=== PATIENT | male | born 1975 | race Caucasian/White ===

== ENCOUNTER → 2016-05-18 12:55 | Emergency (ER) | payer OTHER ==
--- NOTE | ~2016-05-18 | CR181 ---
[facility] A Service of [facility] RADIOLOGY TEXT RESULTS PATIENT: EILEEN PAL LOCATION: [facility] : [birth year] UNIT #: [id number] AGE: [address]: Chloe Astudillo SEX: M ORDER DR: [id number] [id number] [place], [place] [address] [id number] P MR#: [id number] Acc #: [id number] NAME: EILEEN PAL : 1975 SEX: M STUDY DATE/TIME: 05/18/2016 11:55 UNIT: CFTX ROOM: STUDY DESCRIPTION: CR Lumbar Spine 2 or 3 Views Attending Physician: Chloe Astudillo Pa-C Ordering Physician: Ed Carlos A Fernandez M.D. Primary Care Physician: No Primary Care Physician MEDICAL IMAGING REPORT This report is preliminary unless electronic signature is present EXAM 3 views lumbar spine, 05/18/2016, 11:55 HISTORY Low back pain radiating to the right buttocks since yesterday. History of disc bulge. COMPARISON None FINDINGS No acute fracture or subluxation is seen. Probably mild diminished disc height at L4-5. Small endplate marginal osteophytes are present at L1, L3, and L4. No osteolytic or osteoblastic abnormalities. No sacroiliac joint or pubic symphysis diastasis. IMPRESSION No acute lumbar spine findings. Probable mild diminished disc height at L4-5. Dictated by... Donna Go M.D. THIS IS AN ELECTRONICALLY VERIFIED REPORT Donna Go M.D. at 05/19/2016 7:56 AM NEHALH/kt TD: 05/18/2016 13:01 JOB #: [id number] MEDICAL IMAGING REPORT [facility] A Service [facility] RADIOLOGY TEXT RESULTS PATIENT: EILEEN PAL LOCATION: [facility] : 79 UNIT #: [id number] AGE: [address]: Chloe Astudillo SEX: M ORDER DR: Page 1 of 1 COPY
[~2016-05-18 12:55] MED LIST: ALBUTEROL17 GM INH; ARTHRITIS PAIN650 M3 PO; AUGMENTIN PO; BACITRACIN30 GM TOP; CLEOCIN150 MG PO; DIAZEPAM PO; DOXYCYCLINE PO; FLEXERIL PO; FLOMAX0.4 M1 PO; HYDROXYZINE HCL50 MG PO; IBUPROFEN PO; KEFLEX PO; KEFLEX500 MG PO; KEPPRA500 M2 PO; LORTAB 5/500 TA1 TA1 PO; LORTAB 7.5-5001 TAB PO; METAXALONE800 MG PO; MOTRIN600 MG PO; NAPROSYN-EC500 M1 PO; NEURONTIN PO; NEURONTIN300 MG PO; NEURONTIN800 MG PO; NO MEDICATIONS; OXYCODONE HCL10 MG PO; SENNA8.6 M1 PO; STOOL SOFTENER50 MG PO; TYLENOL #3 PO; ULTRAM PO; VICODIN 5/1 TAB 5/50 PO; VICODIN 5/500 T1 TAB PO; VICODIN PO; VOLTAREN75 MG PO; ZOLOFT PO
== END | disposition home or self-care (01) ==
LOC: CFTX 12:55
DX: S39.92XA Unspecified injury of lower back, initial encounter (principal); F31.9 Bipolar disorder, unspecified; F17.200 Nicotine dependence, unspecified, uncomplicated; Z98.890 Other specified postprocedural states; X58.XXXA Exposure to other specified factors, initial encounter; Y93.89 Activity, other specified; Y92.009 Unspecified place in unspecified non-institutional (private) residence as the place of occurrence of the external cause
CPT/HCPCS: 72100; 96372; 99283; J1885

== ENCOUNTER 2016-07-18 03:46 | Inpatient (IN) | payer OTHER ==
--- NOTE | ~2016-07-18 | CO ---
Unit #: [id number] #: [id number] Patient: EILEEN PAL [id number] [address] [place], [place] [address] [id number] I MR#: [id number] NAME: EILEEN PAL ROOM: 302 Age: 40 Sex: M Admission Date: 07/18/2016 : 1975 Attending Physician: Lanny Moran M.D. Consultation Date: 07/18/2016 CONSULTATION REPORT REASON FOR CONSULTATION Spinal osteomyelitis. HISTORY OF PRESENT ILLNESS This is a 40-year-old white male, who was recently at [facility] for lumbar spinal diskitis and osteomyelitis as well as a Staphylococcus aureus sepsis. According to the patient's description, he had MSSA in the blood and he was on nafcillin in the hospital, but he was discharged on IV daptomycin on a daily basis for few weeks. However, he continues to have low back pain, which was progressive along with some subjective fever. He called 911 and came to this hospital, although he wanted to go back to [facility]. I do not have any records from [facility] [place] to confirm his statements. CT scan here shows possible psoas abscess and diskitis of L5-L4 area. The patient does not have any significant fever, hypotension, does not look septic or toxic. He has been started on vancomycin and Zosyn. ID was consulted for further evaluation. PAST MEDICAL HISTORY Recent spinal infection, on IV daptomycin; history of seizures; psychiatric disorder and bipolar disorder. ALLERGIES None. SOCIAL HISTORY Smokes cigarettes. No history of alcohol or drug abuse. HOME MEDICATIONS Metaxalone, Diflucan, naproxen, hydroxyzine, Neurontin, oxycodone, stool softener, daptomycin, and acetaminophen. PREVIOUS SURGERIES Left hand surgery and left arm surgery and right ear surgery, details are not clear. From his description, it appears that he had needle aspiration of his spinal abscess, but no open surgery. SYSTEMIC REVIEW Progressive back pain, subjective fever. There is no lower extremity weakness, stool incontinence, or urinary incontinence. No headache, cough, abdominal pain, dysuria, frequency, urgency, hematuria, etc. PHYSICAL EXAMINATION GENERAL: Reveals a young white male, who is awake and alert, in no acute Unit #: [id number] #: [id number] Patient: EILEEN PAL. VITAL SIGNS: Stable. Temperature is 98, heart rate 100, respirations 18, blood pressure 120/80. HEENT: Unremarkable. Oral hygiene is poor. NECK: Supple. There is no JVD or edema. LUNGS: Clear to percussion and auscultation. HEART: Sounds normal. There are no murmurs. ABDOMEN: Soft and nontender without organomegaly or ascites. Bowel sounds normal. NEUROLOGIC: Nonfocal. There is moderate amount of lumbosacral spinal tenderness, but there is no obvious cellulitis, bulge, or open wounds. DIAGNOSTIC STUDIES LABORATORY RESULTS: White count 13.6, hemoglobin 11.2, platelets 378, neutrophils are 84%. PT is 11.5. Sodium 133, potassium 4.2, chloride 101, CO2 of 23, BUN 24, creatinine 1.1. CRP is 12 and sedimentation rate is 100. IMAGING STUDIES: CT of the lumbar spine shows obliteration of the disk space and vertebral body endplates at L3-4 and L4-5 with associated pathologic fracture of L3, L4, and L5 consistent with diskitis and osteomyelitis. There is also paraspinal inflammation and phlegmon, small fluid collection in the right psoas muscle. IMPRESSION Strongly believe the patient has progressive spinal and paraspinal infection due to methicillin susceptible Staphylococcus aureus. Medical therapy alone is not helping and it may not be helpful. RECOMMENDATIONS Pending confirmation of his microbiology studies for [facility]. I will continue him on Zosyn and vancomycin. I will highly recommend spine surgery consult as soon as possible. He may also need an MRI. Further recommendation will follow. Dictated by... Eva Jang/adryan TD: 07/22/2016 02:22 JOB #: [id number] CONSULTATION REPORT Page 1 of 1 X Chuck Lorenzo MD CONSULTATION REPORT
--- NOTE | ~2016-07-18 | DS ---
Unit #: [id number] #: [id number] Patient: EILEEN PAL [id number] [address] [place], [place] [address] [id number] I MR#: [id number] NAME: EILEEN PAL ROOM: 302 Age: 40 Sex: M Admission Date: 07/18/2016 : 1975 Discharge Date: Attending Physician: Lanny Moran M.D. Primary Care Physician: Primary Care Physician No DISCHARGE SUMMARY DISCHARGE DIAGNOSES 1. Qgtlj-xc-mcbvlwg diskitis L3-L4 and L4-L5, with involvement of adjacent bones with osteomyelitis. 2. Right psoas abscess. Apparently, he had drainage at the [facility] but it still shows recurrent abscess on the new MRI. 3. Severe mass effect on the thecal sac. 4. Anterior epidural extension of inflammation and infectious tissue noted at L3-L4 and L4-L5. 5. History of seizures. 6. Severe back pain. 7. Anemia, likely iron deficiency. 8. Likely bipolar and psychiatric disorder. 9. Mild protein malnutrition. CONSULTANTS 1. Dr. Lorenzo. 2. Dr. Mitchell, spinal doctor. PROCEDURES None. DIAGNOSTIC STUDIES 1. MRI shows diskitis and osteomyelitis at the L3-L4 and L4-L5, involvement at the adjacent bones also. Right psoas abscess, maximum thickness 1.4 cm. It is at least 6.5 cm long. Anterior epidural extension of inflammation infectious tissue noted at the L3-L4 and L4-L5 without epidural abscess. Severe mass effect on thecal sac present. 2. Sodium 138, potassium 3.9, creatinine 0.7, AST 17, ALT 13, alkaline phosphatase 82, total bilirubin 0.4, albumin 2.7. WBC 6.6, hemoglobin 10.0, platelets 327. Blood cultures negative. Sedimentation rate 1.03. C-reactive protein 12.8. 3. C-spine shows abnormal appearance of L4 and L5. CT scan recommended. 4. CT of the lumbar spine shows obliteration of disk space and vertebral body end-plates at the L3-L4 and L4-L5 with associated pathological fractures. Extensive paraspinous inflammation and phlegmon present with diskitis and osteomyelitis. Also intramuscular abscess present. ALLERGIES None. DISCHARGE MEDICATIONS 1. Tylenol 650 q.6 h. p.r.n. pain. 2. Neurontin 300 mg t.i.d. Unit #: [id number] #: [id number] Patient: EILEEN PAL 3. Hydroxyzine 50 mg q.6 h. p.r.n. agitation. 4. Nicotine 21 mg transdermal daily. 5. Colace 100 daily. 6. Senna one tablet daily. 7. Sulindac 150 mg p.o. b.i.d. 8. Roxicodone 10 mg q.4 h. p.r.n. pain. 9. Protonix 40 daily. 10. Metaxalone 800 mg t.i.d. p.r.n. muscle spasms. 11. Ceftriaxone 2 grams IV b.i.d. HOSPITAL COURSE This was 40-year-old admitted because of back pain. Kpkjj-kj-dozxdui diskitis with osteomyelitis at L3-L4, L4-L5 level with a right psoas abscess with severe mass effect and epidural phlegmon. The patient was seen by spine doctor and infectious disease. The patient was on nafcillin, later changed to ceftriaxone because the patient could not tolerate nafcillin because of severe irritation at the IV site. Blood cultures are negative so far. I discussed at length with Infectious Disease and the spine doctor, Dr. Mitchell, they both wanted him to be transferred to the [facility] because of worsening abscess and worsening osteomyelitis and phlegmon and severe mass effect. I discussed with the [facility] medical team. They are agreeing to accept the patient. I will transfer the patient once the bed is available. Severe back pain secondary to diskitis and osteomyelitis. Patient received IV Dilaudid. Continue with p.o. pain medication. History of seizures, stable. The patient is on Neurontin. History of bipolar. Continue with current home medications. DISPOSITION The patient will be transferred to the [facility] once bed is available under Dr. Castro's care. The patient needs spinal surgeon's consult at the [facility] for further evaluation and treatment of his diskitis and spinal abscess. Discharge time taken is 40 minutes. Dictated by... Eva Posey TD: 07/20/2016 16:39 JOB #: [id number] Unit #: [id number] #: [id number] Patient: YARI PALEW DISCHARGE SUMMARY Page 1 of 1 X Lanny Moran MD DISCHARGE SUMMARY
--- NOTE | ~2016-07-18 | HP ---
Unit #: [id number] #: [id number] Patient: EILEEN PAL [id number] [facility] [address]. [place], [place] [address] [id number] I MR#: [id number] NAME: EILEEN PAL ROOM: 302 Age: 40 Sex: M Admission Date: 07/18/2016 : 1975 Attending Physician: Lanny Moran M.D. Primary Care Physician: No Primary Care Physician HISTORY AND PHYSICAL HISTORY OF PRESENT ILLNESS This is a 40 year old with history of recent spinal infection, likely diskitis with abscess, on IV antibiotics. He is admitted because of back pain. According to him, he has had back pain for a few weeks, but his pain got worse since 1 day's duration. He called ambulance, and the ambulance brought him to [facility]. In the ER the patient had a CT, which shows acute diskitis and psoas abscess. On further questioning, the patient says he is going to [facility] for his back infection. He is getting IV antibiotics, the name he currently cannot remember. He is supposed to go there, but because the ambulance brought him here, he could not go there today. Also, he complains of pain currently around 6/10 with radiation to his leg, relieved with pain medication. No fever. No chills. No Nausea. No vomiting. No diarrhea. No constipation or urine trouble. PAST MEDICAL HISTORY Recent history of back infection, on IV antibiotics, details unknown. I will get records from [facility]. He has history of seizures and psychiatric disorder, likely bipolar. ALLERGIES None. SOCIAL HISTORY Smokes 1/2 pack of cigarettes per day. No alcohol. No drugs. HOME MEDICATIONS Metaxalone 800 p.o. t.i.d., Diflucan 75 p.o. b.i.d., naproxen 500 t.i.d., hydroxyzine 50 q.6, Neurontin 300 t.i.d., oxycodone 10 mg q.4, stool softener 50 daily, Senna 1 tablet daily, Arthritis Pain Relief (acetaminophen) 650 q.6 p.r.n. PAST SURGICAL HISTORY Drain in his back, likely I and D. Also, he had left hand surgery, left arm surgery, right ear surgery. REVIEW OF SYSTEMS Currently no headache. No visual changes. No weakness, numbness, tingling. No skin rash. No leg swelling. Reviewed 12-point systems with him, which are negative except as in the HPI. Unit #: [id number] #: [id number] Patient: EILEEN PAL PHYSICAL EXAMINATION VITAL SIGNS: Temperature 98, pulse 118, respirations 24, blood pressure 126/89. GENERAL EXAMINATION: A 40 year old lying on the bed in mild distress secondary to pain, able to provide history. Alert, oriented x3. HEENT: Pupils are equally reactive to light and accommodation. No pallor. No icterus. Dry mucosa present. NECK: Supple. HEART: S1, S2 heard. Regular rhythm. LUNGS: Clear to auscultation. No crackles. No rhonchi. ABDOMEN: Soft, nontender. Bowel sounds are present. EXTREMITIES: No pedal edema. SKIN: No rash. NEUROLOGIC: Moving all extremities. Nonfocal. BACK: Patient has tenderness in the lower back. No swelling or erythema in his back. DIAGNOSTIC STUDIES LAB DATA: WBC 13.6, hemoglobin 11.2, platelets 378. INR 1.1. Sodium 133, potassium 4.2, creatinine 1.1. IMAGING: CT of the lumbar spine shows obliteration of disk space and vertebral body and plate at L3-L4 and L4-L5 associated with pathological fractures of the L3, L4 and L5. Process appears centered about the disc spaces and consistent with a discitis and osteomyelitis. Extensive paraspinous inflammation supportive of diskitis and osteomyelitis present. Right psoas muscle has intramuscular abscess. ASSESSMENT This is a 40 year old admitted because of back pain. PLAN 1. Acute on chronic diskitis with osteomyelitis at L3-L4 and L4-L5 levels. I am going to start him on IV vancomycin and Zosyn and do blood cultures. Infectious disease and spine surgeon to look at him. I will also get records from [facility]. 2. Recent spinal abscess status post aspiration, as per patient. Waiting on records from [facility]. 3. Pathological fractures L3, L4, L5. Continue with IV antibiotics. 4. Intramuscular abscess, right psoas. I am going to wait for the spinal surgeon to see if the patient needs more I and D or drain. 5. History of seizures. The patient is not on any medications. Monitor closely. 6. Bilateral SCDs for DVT prophylaxis. 7. Protonix for GI prophylaxis. Dictated by Eva Posey/brynn TD: 07/18/2016 16:22 JOB #: [id number] Unit #: [id number] #: [id number] Patient: EILEEN PAL HISTORY AND PHYSICAL Page 1 of 1 X Lanny Moran MD X HISTORY AND PHYSICAL
--- NOTE | ~2016-07-18 | CR181 ---
[facility] A Service of [facility] RADIOLOGY TEXT RESULTS PATIENT: EILEEN PAL LOCATION: [facility] 302-01 : [birth year] UNIT #: [id number] AGE: [address]: Lanny Moran MD SEX: M ORDER DR: [id number] [facility] [address]. [place], [place] [address] [id number] I MR#: [id number] Acc #: [id number] NAME: EILEEN PAL : 1975 SEX: M STUDY DATE/TIME: 07/18/2016 4:17 UNIT: [facility] ROOM: [id number] STUDY DESCRIPTION: CR Lumbar Spine 2 or 3 Views Attending Physician: Lanny Moran M.D. Ordering Physician: Anjali Greer M.D. Primary Care Physician: No Primary Care Physician MEDICAL IMAGING REPORT This report is preliminary unless electronic signature is present EXAM Lumbar spine 3-view series. INDICATION Back pain for 3 months after fall. COMPARISON 05/18/16. FINDINGS AP and lateral views of the lumbar spine were obtained. It is very difficult to clearly see the disc space at the L3-4 and 4-5 level and the L4 vertebral body is difficult to visualize on the lateral views and the bodies were fairly distinct on the old study. The alignment is normal. IMPRESSION I am concerned that there has been some change in the appearance of L4 as compared with the old study. It appeared normal on the old exam but on today's study it is very difficult to see the L4-5 disc space and the L4 vertebral body on any of the 3 lateral views and I am concerned there might be disc space loss and perhaps change in the shape of the L4 vertebral body. I have recommended a CT scan of the lumbar spine for further evaluation. Dictated by... Daniel Marques M.D. THIS IS AN ELECTRONICALLY VERIFIED REPORT Daniel Marques M.D. at 07/18/2016 1:22 PM FEL/bd [facility] A Service of [facility] RADIOLOGY TEXT RESULTS PATIENT: EILEEN PAL LOCATION: [facility] 302-01 : [birth year] UNIT #: [id number] AGE: [address]: Lanny Moran MD SEX: M ORDER DR: TD: 07/18/2016 11:06 JOB #: [id number] MEDICAL IMAGING REPORT Page 1 of 1 COPY
--- NOTE | ~2016-07-18 | MR112 ---
[facility] A Service of [facility] RADIOLOGY TEXT RESULTS PATIENT: EILEEN PAL LOCATION: [facility] 302- : [birth year] UNIT #: [id number] AGE: [address]: Lanny Moran MD SEX: M ORDER DR: [id number] [facility] [address] [place], [place] [address] [id number] I MR#: [id number] Acc #: [id number] NAME: EILEEN PAL : 1975 SEX: M STUDY DATE/TIME: 07/20/2016 9:03 UNIT: A [facility] ROOM: [facility] STUDY DESCRIPTION: MR Lumbar WWo Contrast Attending Physician: Lanny Moran M.D. Ordering Physician: Lanny Moran M.D. Primary Care Physician: Primary Care Physician No MRI CENTER REPORT This report is preliminary unless electronic signature is present. EXAM MRI lumbar spine with and without contrast dated 07/20/[address] lumbar spine without contrast dated 07/18/2016. HISTORY Recent spinal infection. Patient was started on IV antibiotics at [facility]. History of diskitis and osteomyelitis from L3-L5. FINDINGS Multisequence multiplanar imaging of the lumbar spine was obtained with and without contrast. 18 mL of MultiHance was administered intravenously. GFR measured greater than 60. There is significant edema with loss of vertebral body height from L3 to L5, worse at L4 followed by 3. Intervertebral disc increased T2 signal with peripheral rim of enhancement is noted at L3-4 and L4-5 discs. There is surrounding significant inflammatory enhancing soft tissue at these levels. Peripherally enhancing cystic components are noted to extend from the inferior aspect of L4-5 disc space and the upper L5 vertebral body along the right anterolateral aspect to the anteromedial and anterior right psoas muscle. Its entire extension is not included in the current study. It is a very long collection with a maximum thickness of 1.4 cm in the visualized part of the right psoas abscess. Its length is more than 6.5 cm. There is extension of abnormal enhancing soft tissue in the anterior epidural space from the level of L3 to the level of L5, most prominent at L3-4. Though increased T2 signal is noted focally at the central aspect of L3-4 disc, it does not correlate with an abscess collection as the entire component enhances. It does cause severe mass effect on the thecal sac at this level. No enhancing nerve roots are noted in the cauda equina or distal thoracic cord. [facility] A Service of [facility] RADIOLOGY TEXT RESULTS PATIENT: EILEEN PAL LOCATION: [facility] 302-01 : [birth year] UNIT #: [id number] AGE: [address]: Lanny Moran MD SEX: M ORDER DR: L1-2: Concentric disc bulge with small left foraminal to extraforaminal broad based protrusion. Minimal bilateral facet changes are noted with borderline size canal. No significant neural foraminal narrowing. L2-3: Minimal disc bulge but otherwise unremarkable. L3-4: Significant disc abnormality is noted as described above with extension into the anterior epidural space of the enhancing soft tissue causing severe canal stenosis. There are rmbn-eo-hpwpncgr bilateral facet hypertrophic changes with ligamentum flavum thickening, moderate bilateral lateral recess stenosis and eaazxfmx-un-xcinvw bilateral neural foraminal narrowing. L4-5: Abnormal infected disc with anterior epidural enhancing soft tissue causing ducqmfel-hz-qjktjl mass effect on the thecal sac. Prominent posterior and lateral epidural fat contributes to the thecal sac narrowing. There is moderate right and mild to moderate left neural foraminal narrowing due to presence of soft tissue. Alys-vm-yywcvtuk facet changes are noted, worse in the left. L5-S1: Concentric disc bulge with small central protrusion. Mild right facet hypertrophic change is noted. No significant canal stenosis or neural foraminal narrowing. IMPRESSION 1. Diskitis and osteomyelitis at L3-4 and L4-5 levels with involvement of the adjacent bones. 2. There is an abscess collection which extends from the inferior aspect of L4-5 disc along the right anterolateral aspect. It traces to the medial and anterior aspect of the right psoas muscle and has a maximum thickness of 1.4 cm in the visualized portions. It is at least 6.5 cm long in its oblique course. 3. Findings were discussed with Dr. Moran at 11:30 a.m. on 07/20/2016. Awaiting comparison with [facility] previous MRI study. Patient apparently had a catheter draining an abscess. 4. Anterior epidural extension of inflammatory/infectious tissue is noted at L3-4 and L4-5 without epidural abscess. There is severe mass effect on the thecal sac. Addendum will be placed when prior exam from [facility] is given. This abscess was suspected in the CT lumbar spine from 07/18/2016. Dictated by... Bob Marc M.D. THIS IS AN ELECTRONICALLY VERIFIED REPORT Bob Marc M.D. at 07/20/2016 6:06 PM CPR/mjs [facility] A Service of [facility] RADIOLOGY TEXT RESULTS PATIENT: EILEEN PAL LOCATION: [facility] 302- : [birth year] UNIT #: [id number] AGE: [address]: Lanny Moran MD SEX: M ORDER DR: TD: 07/20/2016 12:59 JOB #: [id number] MRI CENTER REPORT Page 1 of 1 COPY
--- NOTE | ~2016-07-18 | CT98 ---
[facility] A Service of [facility] RADIOLOGY TEXT RESULTS PATIENT: EILEEN PAL LOCATION: [facility] : 79 UNIT #: [id number] AGE: [address]: Mitchell Figueredo MD SEX: M ORDER DR: [id number] [facility] [address] [place], [place] [address] [id number] MR#: [id number] #: [id number] NAME: EILEEN PAL : 1975 SEX: M STUDY DATE/TIME: 07/18/2016 5:44 UNIT: [facility] ROOM: STUDY DESCRIPTION: CT Lumbar Spine Wo Cont Attending Physician: Mitchell Figueredo M.D. Ordering Physician: Anjali Greer M.D. Primary Care Physician: Primary Care Physician No MEDICAL IMAGING REPORT This report is preliminary unless electronic signature is present EXAM CT lumbar spine INDICATIONS Low back pain. Spinal abscess. 1-day duration. Abnormal lumbar spine radiographs. Discitis/osteomyelitis. TECHNIQUE CT of the lumbar spine without contrast. Coronal and sagittal reconstructions were obtained. The CT exam was performed with one or more of the following radiation dose reduction techniques: automatic exposure control, adjustment of mA and/or kV according to patient size, and iterative reconstruction. COMPARISON: Lumbar spine radiographs 07/18/2016 and 05/18/2016. FINDINGS There is endplate destruction of the L3-4 and L4-5 spaces. There is a pathologic fracture involving the inferior endplate of L3, L4 vertebral body, and superior endplate of L5. The disc space is obliterated. There is retropulsion of fracture fragments at the L3-4 level. The retropulsion measuring up to 6 mm. Although limited without IV contrast, there does appear to be some paraspinous phlegmon and/or inflammation. The overall appearance is most consistent with discitis/osteomyelitis. Evaluation for an extradural component is limited, without IV contrast, however, however, abscess is suspected. There is some low attenuation within the right psoas muscle which could represent an intramuscular abscess. Contrast enhanced exam or an MRI is recommended. There is straightening of the normal lumbar lordosis at L3-4 and L4-5. STS. [facility] A Service of [facility] & [facility] RADIOLOGY TEXT RESULTS PATIENT: EILEEN PAL LOCATION: [facility] : 79 UNIT #: [id number] AGE: [address]: Mitchell Figueredo MD SEX: M ORDER DR: IMPRESSION 1. Obliteration of the disc space and vertebral body endplates at L3-4 and L4-5 with associated pathologic fractures of the L3, L4, and L5. This process does appears centered about the disc spaces and is consistent with a discitis/osteomyelitis. 2. Extensive paraspinous inflammation and phlegmon is supportive for a discitis/osteomyelitis. There is a low attenuation in the neck. 3. There is a low-attenuation fluid collection extending into the right psoas muscle likely represent intramuscular abscess. Please note that evaluation is limited without IV contrast. 4. Retropulsion of the L3 and L4 vertebral bodies due to pathologic fracture. This results in a moderate central canal stenosis. Dictated by... Johnie Pablo M.D. THIS IS AN ELECTRONICALLY VERIFIED REPORT Johnie Pablo M.D. at 07/18/2016 8:05 AM BALDOMERO/naomi TD: 07/18/2016 07:01 JOB #: [id number] MEDICAL IMAGING REPORT Page 1 of 1 COPY
[~2016-07-18 03:46] MED LIST changes: -ARTHRITIS PAIN650 M3 PO; -HYDROXYZINE HCL50 MG PO; -METAXALONE800 MG PO; -NAPROSYN-EC500 M1 PO; -NEURONTIN300 MG PO; -OXYCODONE HCL10 MG PO; -SENNA8.6 M1 PO; -STOOL SOFTENER50 MG PO; -VOLTAREN75 MG PO
[2016-07-18 07:35] LABS: BASOPHIL# 0.1 X10e3 (0-0.3); BASOPHIL% 0.8 % (0-2.5); EOSINOPHIL# 0.1 X10e3 (0-0.7); EOSINOPHIL% 0.4 % (0.0-7.0); HEMATOCRIT 34.2 % (38.0-50.0); HEMOGLOBIN 11.2 gm/dL (13.0-16.0); LYMPHOCYTE# 1.5 X10e3 (1.0-3.5); LYMPHOCYTE% 10.7 % (17.0-45.0); MEAN CELL VOLUME 90.1 FL (83-96); MEAN CORPUSCULAR HEMOGLOBIN 29.4 PG (28-34); MEAN CORPUSCULAR HGB CONC 32.6 g/dL (30-36); MEAN PLATELET VOLUME 6.7 FL (6.5-11.5); MONOCYTE# 0.4 X10e3 (0-1.0); MONOCYTE% 3.2 % (3.0-12.0); NEUTROPHIL# 11.6 X10e3 (1.5-7.1); NEUTROPHIL% 84.9 % (40-75); PLATELET COUNT 378 X10e3 (140-420); RED CELL DISTRIBUTION WIDTH 16.7 % (11.0-15.5); WHITE BLOOD COUNT 13.6 X10e3 (4.0-10.5)
[2016-07-18 07:36] LABS: DIFF IND NO
[2016-07-18 07:53] LABS: INR 1.1; PARTIAL THROMBOPLASTIN TIME 26.6 SECONDS (23.5-31.3); PROTHROMBIN TIME (PATIENT) 11.5 SECONDS (9.6-11.5)
[2016-07-18 08:02] LABS: BUN/CREATININE RATIO 21.81; CALCIUM SERUM 9.7 mg/dL (8.4-10.2); CREATININE SERUM 1.1 mg/dL (0.6-1.4); GLOM FILT RATE Estimated 84.7 mL/min (>60); POTASSIUM 4.2 mmol/L (3.5-5.1)
[2016-07-19 05:13] LABS: HEMATOCRIT 30.1 % (38.0-50.0); HEMOGLOBIN 9.8 gm/dL (13.0-16.0); MEAN CORPUSCULAR HEMOGLOBIN 29.3 PG (28-34); MEAN CORPUSCULAR HGB CONC 32.6 g/dL (30-36); MEAN PLATELET VOLUME 6.8 FL (6.5-11.5); RED BLOOD COUNT 3.35 X10e (3.90-5.60); RED CELL DISTRIBUTION WIDTH 16.7 % (11.0-15.5); WHITE BLOOD COUNT 11.7 X10e3 (4.0-10.5)
[2016-07-19 05:55] LABS: ALBUMIN SERUM 2.8 g/dL (3.5-5.0); BILIRUBIN,TOTAL 0.4 mg/dL (0.2-2.0); BUN/CREATININE RATIO 33.75; CALCIUM SERUM 8.7 mg/dL (8.4-10.2); CREATININE SERUM 0.8 mg/dL (0.6-1.4); GLOM FILT RATE Estimated 113.4 mL/min (>60); POTASSIUM 3.7 mmol/L (3.5-5.1); PROTEIN TOTAL SERUM 7.9 g/dL (6.0-8.3)
[2016-07-20 05:40] LABS: HEMATOCRIT 30.9 % (38.0-50.0); MEAN CELL VOLUME 91.3 FL (83-96); MEAN CORPUSCULAR HEMOGLOBIN 29.6 PG (28-34); MEAN CORPUSCULAR HGB CONC 32.5 g/dL (30-36); RED BLOOD COUNT 3.39 X10e (3.90-5.60); RED CELL DISTRIBUTION WIDTH 16.7 % (11.0-15.5); WHITE BLOOD COUNT 6.6 X10e3 (4.0-10.5)
[2016-07-20 06:38] LABS: ALBUMIN SERUM 2.7 g/dL (3.5-5.0); BILIRUBIN,TOTAL 0.4 mg/dL (0.2-2.0); BUN/CREATININE RATIO 28.57; CREATININE SERUM 0.7 mg/dL (0.6-1.4); GLOM FILT RATE Estimated 119.8 mL/min (>60); POTASSIUM 3.9 mmol/L (3.5-5.1); PROTEIN TOTAL SERUM 7.5 g/dL (6.0-8.3)
[2016-08-22] MEDS ORDERED: METAXALONE800 MG PO (07:56)
[2016-08-22] MEDS ORDERED: VOLTAREN75 MG PO (07:56)
[2016-08-22] MEDS ORDERED: NEURONTIN300 MG PO (07:57)
[2016-08-22] MEDS ORDERED: NAPROSYN-EC500 M1 PO (07:57)
[2016-08-22] MEDS ORDERED: HYDROXYZINE HCL50 MG PO (07:57)
[2016-08-22] MEDS ORDERED: OXYCODONE HCL10 MG PO (07:59)
[2016-08-22] MEDS ORDERED: SENNA8.6 M1 PO (08:05)
[2016-08-22] MEDS ORDERED: STOOL SOFTENER50 MG PO (08:05)
[2016-08-22] MEDS ORDERED: ARTHRITIS PAIN650 M3 PO (08:06)
== END 2016-07-20 23:29 | disposition hospice, home (50) | DRG 539 ==
LOC: CED 03:46 → CEDOF 07:35 → C3A PCU 07:35 → CED 07:52 → CEDOF 07:52 → C3A PCU 11:46 → CEDOF 11:46 → C3A PCU 07-20 23:29
PROVIDERS: Emergency Medicine; Internal Medicine
DX: M46.26 Osteomyelitis of vertebra, lumbar region (principal); K68.12 Psoas muscle abscess; E44.1 Mild protein-calorie malnutrition; M84.48XA Pathological fracture, other site, initial encounter for fracture; F17.213 Nicotine dependence, cigarettes, with withdrawal; M46.46 Discitis, unspecified, lumbar region; G40.909 Epilepsy, unspecified, not intractable, without status epilepticus; D50.9 Iron deficiency anemia, unspecified; F31.9 Bipolar disorder, unspecified; B95.62 Methicillin resistant Staphylococcus aureus infection as the cause of diseases classified elsewhere; F99 Mental disorder, not otherwise specified
CPT/HCPCS: 36415; 72100; 72131; 72158; 80048; 80053; 85025; 85027; 85610; 85652; 85730; 86140; 87040; 96372; 99285; A9577; J0696; J2060; J2543; J3370

== ENCOUNTER → 2016-08-01 | Outpatient (CLI) | payer OTHER ==
[~2016-08-01] MED LIST changes: +ARTHRITIS PAIN650 M3 PO; +HYDROXYZINE HCL50 MG PO; +METAXALONE800 MG PO; +NAPROSYN-EC500 M1 PO; +NEURONTIN300 MG PO; +OXYCODONE HCL10 MG PO; +SENNA8.6 M1 PO; +STOOL SOFTENER50 MG PO; +VOLTAREN75 MG PO
== END | disposition home or self-care (01) ==
LOC: CSSDAY 13:00
DX: Z53.9 Procedure and treatment not carried out, unspecified reason (principal)
CPT/HCPCS: J0878

== ENCOUNTER → 2016-08-02 | Outpatient (CLI) | payer OTHER | END | disposition home or self-care (01) | LOC: CSSDAY 09:00 | DX: M46.26 Osteomyelitis of vertebra, lumbar region (principal); M00.011 Staphylococcal arthritis, right shoulder; B95.61 Methicillin susceptible Staphylococcus aureus infection as the cause of diseases classified elsewhere; Z79.2 Long term (current) use of antibiotics | CPT/HCPCS: 96365; J0878 ==

== ENCOUNTER → 2016-08-03 | Outpatient (CLI) | payer OTHER | END | disposition home or self-care (01) | LOC: CSSDAY 08:30 | DX: M46.26 Osteomyelitis of vertebra, lumbar region (principal); M00.011 Staphylococcal arthritis, right shoulder; B95.61 Methicillin susceptible Staphylococcus aureus infection as the cause of diseases classified elsewhere; Z79.2 Long term (current) use of antibiotics | CPT/HCPCS: 96365; J0878 ==

== ENCOUNTER → 2016-08-04 | Outpatient (CLI) | payer OTHER | END | disposition home or self-care (01) | LOC: CSSDAY 08:36 | DX: M46.26 Osteomyelitis of vertebra, lumbar region (principal); M00.011 Staphylococcal arthritis, right shoulder; B95.61 Methicillin susceptible Staphylococcus aureus infection as the cause of diseases classified elsewhere; Z79.2 Long term (current) use of antibiotics | CPT/HCPCS: 96365; J0878 ==

== ENCOUNTER → 2016-08-05 | Outpatient (CLI) | payer OTHER | END | disposition home or self-care (01) | LOC: CSSDAY 07:24 | DX: M46.26 Osteomyelitis of vertebra, lumbar region (principal); M00.011 Staphylococcal arthritis, right shoulder; B95.61 Methicillin susceptible Staphylococcus aureus infection as the cause of diseases classified elsewhere; Z79.2 Long term (current) use of antibiotics | CPT/HCPCS: 96365; J0878 ==

== ENCOUNTER → 2016-08-06 | Outpatient (CLI) | payer OTHER | END | disposition home or self-care (01) | LOC: CSSDAY 07:24 | DX: M46.26 Osteomyelitis of vertebra, lumbar region (principal); M00.011 Staphylococcal arthritis, right shoulder; B95.61 Methicillin susceptible Staphylococcus aureus infection as the cause of diseases classified elsewhere; Z79.2 Long term (current) use of antibiotics | CPT/HCPCS: 96365; J0878 ==

== ENCOUNTER → 2016-08-07 | Outpatient (CLI) | payer OTHER ==
[2016-08-07 08:16] LABS: BASOPHIL# 0.1 X10e3 (0-0.3); BASOPHIL% 1.2 % (0-2.5); EOSINOPHIL# 0.2 X10e3 (0-0.7); EOSINOPHIL% 2.1 % (0.0-7.0); HEMATOCRIT 36.9 % (38.0-50.0); HEMOGLOBIN 12.2 gm/dL (13.0-16.0); LYMPHOCYTE# 3.1 X10e3 (1.0-3.5); LYMPHOCYTE% 43.8 % (17.0-45.0); MEAN CELL VOLUME 91.1 FL (83-96); MEAN CORPUSCULAR HEMOGLOBIN 30.2 PG (28-34); MEAN CORPUSCULAR HGB CONC 33.2 g/dL (30-36); MEAN PLATELET VOLUME 6.6 FL (6.5-11.5); MONOCYTE# 0.4 X10e3 (0-1.0); NEUTROPHIL# 3.4 X10e3 (1.5-7.1); NEUTROPHIL% 46.9 % (40-75); PLATELET COUNT 449 X10e3 (140-420); RED BLOOD COUNT 4.05 X10e (3.90-5.60); RED CELL DISTRIBUTION WIDTH 17.3 % (11.0-15.5); WHITE BLOOD COUNT 7.2 X10e3 (4.0-10.5)
[2016-08-07 08:23] LABS: DIFF IND NO
[2016-08-07 08:38] LABS: ALBUMIN SERUM 3.7 g/dL (3.5-5.0); BILIRUBIN,TOTAL 0.5 mg/dL (0.2-2.0); CREATININE SERUM 0.8 mg/dL (0.6-1.4); GLOM FILT RATE Estimated 113.4 mL/min (>60)
== END | disposition home or self-care (01) ==
LOC: CSSDAY 07:35
PROVIDERS: Internal Medicine
DX: M46.26 Osteomyelitis of vertebra, lumbar region (principal); M00.011 Staphylococcal arthritis, right shoulder; B95.61 Methicillin susceptible Staphylococcus aureus infection as the cause of diseases classified elsewhere; Z79.2 Long term (current) use of antibiotics
CPT/HCPCS: 80053; 82550; 85025; 85652; 86140; 96365; J0878

== ENCOUNTER → 2016-08-08 | Outpatient (CLI) | payer OTHER | END | disposition home or self-care (01) | LOC: CSSDAY 07:02 | DX: M46.26 Osteomyelitis of vertebra, lumbar region (principal); M00.011 Staphylococcal arthritis, right shoulder; B95.61 Methicillin susceptible Staphylococcus aureus infection as the cause of diseases classified elsewhere; Z79.2 Long term (current) use of antibiotics | CPT/HCPCS: 96365; J0878 ==

== ENCOUNTER → 2016-08-09 | Outpatient (CLI) | payer OTHER | END | disposition home or self-care (01) | LOC: CSSDAY 07:27 | DX: M46.26 Osteomyelitis of vertebra, lumbar region (principal); M00.011 Staphylococcal arthritis, right shoulder; B95.61 Methicillin susceptible Staphylococcus aureus infection as the cause of diseases classified elsewhere; Z79.2 Long term (current) use of antibiotics | CPT/HCPCS: 96365; J0878 ==

== ENCOUNTER → 2016-08-10 | Outpatient (CLI) | payer OTHER | END | disposition home or self-care (01) | LOC: CSSDAY 07:00 | DX: M46.26 Osteomyelitis of vertebra, lumbar region (principal); M00.011 Staphylococcal arthritis, right shoulder; B95.61 Methicillin susceptible Staphylococcus aureus infection as the cause of diseases classified elsewhere; Z79.2 Long term (current) use of antibiotics | CPT/HCPCS: 96365; J0878 ==

== ENCOUNTER → 2016-08-11 | Outpatient (CLI) | payer OTHER | END | disposition home or self-care (01) | LOC: CSSDAY 07:00 | DX: M46.26 Osteomyelitis of vertebra, lumbar region (principal); M00.011 Staphylococcal arthritis, right shoulder; B95.61 Methicillin susceptible Staphylococcus aureus infection as the cause of diseases classified elsewhere; Z79.2 Long term (current) use of antibiotics | CPT/HCPCS: 96365; J0878 ==

== ENCOUNTER → 2016-08-12 | Outpatient (CLI) | payer OTHER | END | disposition home or self-care (01) | LOC: CSSDAY 07:00 | DX: M46.26 Osteomyelitis of vertebra, lumbar region (principal); M00.011 Staphylococcal arthritis, right shoulder; B95.61 Methicillin susceptible Staphylococcus aureus infection as the cause of diseases classified elsewhere; Z79.2 Long term (current) use of antibiotics | CPT/HCPCS: 96365; J0878 ==

== ENCOUNTER → 2016-08-13 | Outpatient (CLI) | payer OTHER | END | disposition home or self-care (01) | LOC: CSSDAY 07:10 | DX: M46.26 Osteomyelitis of vertebra, lumbar region (principal); M00.011 Staphylococcal arthritis, right shoulder; B95.61 Methicillin susceptible Staphylococcus aureus infection as the cause of diseases classified elsewhere; Z79.2 Long term (current) use of antibiotics | CPT/HCPCS: 96365; J0878 ==

== ENCOUNTER → 2016-08-14 | Day surgery (SDC) | payer OTHER | END | disposition home or self-care (01) | LOC: CSSDAY 07:20 | DX: M46.26 Osteomyelitis of vertebra, lumbar region (principal); M00.011 Staphylococcal arthritis, right shoulder; B95.61 Methicillin susceptible Staphylococcus aureus infection as the cause of diseases classified elsewhere; Z79.899 Other long term (current) drug therapy | CPT/HCPCS: 96365; J0878 ==

== ENCOUNTER → 2016-08-16 | Outpatient (CLI) | payer OTHER | END | disposition home or self-care (01) | LOC: CSSDAY 07:00 | DX: M46.26 Osteomyelitis of vertebra, lumbar region (principal); M00.011 Staphylococcal arthritis, right shoulder; B95.61 Methicillin susceptible Staphylococcus aureus infection as the cause of diseases classified elsewhere; Z79.2 Long term (current) use of antibiotics | CPT/HCPCS: 96365; J0878 ==

== ENCOUNTER → 2016-08-17 | Outpatient (CLI) | payer OTHER | END | disposition home or self-care (01) | LOC: CSSDAY 07:00 | DX: M46.26 Osteomyelitis of vertebra, lumbar region (principal); M00.011 Staphylococcal arthritis, right shoulder; B95.61 Methicillin susceptible Staphylococcus aureus infection as the cause of diseases classified elsewhere; Z79.2 Long term (current) use of antibiotics | CPT/HCPCS: 96365; J0878 ==

== ENCOUNTER → 2016-08-18 | Outpatient (CLI) | payer OTHER ==
[2016-08-18 09:51] LABS: HEMATOCRIT 36.9 % (38.0-50.0); HEMOGLOBIN 12.1 gm/dL (13.0-16.0); MEAN CELL VOLUME 91.1 FL (83-96); MEAN CORPUSCULAR HEMOGLOBIN 29.8 PG (28-34); MEAN CORPUSCULAR HGB CONC 32.7 g/dL (30-36); MEAN PLATELET VOLUME 7.6 FL (6.5-11.5); RED BLOOD COUNT 4.05 X10e (3.90-5.60); RED CELL DISTRIBUTION WIDTH 16.7 % (11.0-15.5)
[2016-08-18 10:25] LABS: ALBUMIN SERUM 3.5 g/dL (3.5-5.0); BILIRUBIN,TOTAL 0.6 mg/dL (0.2-2.0); BUN/CREATININE RATIO 12.22; CALCIUM SERUM 9.3 mg/dL (8.4-10.2); CREATININE SERUM 0.9 mg/dL (0.6-1.4); POTASSIUM 3.7 mmol/L (3.5-5.1); PROTEIN TOTAL SERUM 8.2 g/dL (6.0-8.3)
== END | disposition home or self-care (01) ==
LOC: CSSDAY 07:00
PROVIDERS: Internal Medicine
DX: M46.26 Osteomyelitis of vertebra, lumbar region (principal); M00.011 Staphylococcal arthritis, right shoulder; B95.61 Methicillin susceptible Staphylococcus aureus infection as the cause of diseases classified elsewhere; Z79.2 Long term (current) use of antibiotics
CPT/HCPCS: 80053; 82550; 85027; 85652; 96365; J0878

== ENCOUNTER → 2016-08-19 | Outpatient (CLI) | payer OTHER | END | disposition home or self-care (01) | LOC: CSSDAY 07:00 | DX: M46.26 Osteomyelitis of vertebra, lumbar region (principal); M00.011 Staphylococcal arthritis, right shoulder; B95.61 Methicillin susceptible Staphylococcus aureus infection as the cause of diseases classified elsewhere; Z79.2 Long term (current) use of antibiotics | CPT/HCPCS: 96365; J0878 ==

== ENCOUNTER → 2016-08-20 | Outpatient (CLI) | payer OTHER | END | disposition home or self-care (01) | LOC: CSSDAY 07:00 | DX: M46.26 Osteomyelitis of vertebra, lumbar region (principal); M00.011 Staphylococcal arthritis, right shoulder; B95.61 Methicillin susceptible Staphylococcus aureus infection as the cause of diseases classified elsewhere; Z79.2 Long term (current) use of antibiotics | CPT/HCPCS: 96365; J0878 ==

== ENCOUNTER → 2016-08-21 | Outpatient (CLI) | payer OTHER | END | disposition home or self-care (01) | LOC: CSSDAY 07:00 | DX: M46.26 Osteomyelitis of vertebra, lumbar region (principal); M00.011 Staphylococcal arthritis, right shoulder; B95.61 Methicillin susceptible Staphylococcus aureus infection as the cause of diseases classified elsewhere; Z79.2 Long term (current) use of antibiotics | CPT/HCPCS: 96365; J0878 ==

== ENCOUNTER → 2016-08-22 | Outpatient (CLI) | payer OTHER | END | disposition home or self-care (01) | LOC: CSSDAY 07:00 | DX: M46.26 Osteomyelitis of vertebra, lumbar region (principal); M00.011 Staphylococcal arthritis, right shoulder; B95.61 Methicillin susceptible Staphylococcus aureus infection as the cause of diseases classified elsewhere; Z79.2 Long term (current) use of antibiotics | CPT/HCPCS: 96365; J0878 ==

== ENCOUNTER → 2016-08-23 | Outpatient (CLI) | payer OTHER | END | disposition home or self-care (01) | LOC: CSSDAY 07:00 | DX: M46.26 Osteomyelitis of vertebra, lumbar region (principal); M00.011 Staphylococcal arthritis, right shoulder; B95.61 Methicillin susceptible Staphylococcus aureus infection as the cause of diseases classified elsewhere; Z79.2 Long term (current) use of antibiotics | CPT/HCPCS: 96365; J0878 ==

== ENCOUNTER → 2016-08-24 | Outpatient (CLI) | payer OTHER | END | disposition home or self-care (01) | LOC: CSSDAY 07:00 | DX: M46.26 Osteomyelitis of vertebra, lumbar region (principal); M00.011 Staphylococcal arthritis, right shoulder; B95.61 Methicillin susceptible Staphylococcus aureus infection as the cause of diseases classified elsewhere; Z79.2 Long term (current) use of antibiotics | CPT/HCPCS: 96365; J0878 ==

== ENCOUNTER → 2016-08-25 | Outpatient (CLI) | payer OTHER | END | disposition home or self-care (01) | LOC: CSSDAY 07:00 | DX: M46.26 Osteomyelitis of vertebra, lumbar region (principal); M00.011 Staphylococcal arthritis, right shoulder; B95.61 Methicillin susceptible Staphylococcus aureus infection as the cause of diseases classified elsewhere; Z79.2 Long term (current) use of antibiotics | CPT/HCPCS: 96365; J0878 ==